=== PATIENT | female | born 1995 | race Caucasian/White ===

== ENCOUNTER 2020-02-05 10:12 | Observation (INO) | payer SELFPAY ==
[~2020-02-05] VITALS: Ht 157.5 cm; Wt 80.3 kg
[2020-02-05] MEDS ORDERED: LACTATED RINGERS 1,000 ML IV SCH (12:45)
[2020-02-05] MEDS: TERBUTALINE SULFATE 1MG/ML VIAL SUBCUT NR ×2 (13:07→14:01)
== END 2020-02-05 15:00 | disposition home or self-care (01) ==
LOC: 8 EST LDRP 10:12
PROVIDERS: ADMIT Obstetrics & Gynecology; ATTEND Obstetrics & Gynecology
DX: O26.893 Other specified pregnancy related conditions, third trimester (principal); R10.9 Unspecified abdominal pain; Z3A.31 31 weeks gestation of pregnancy
CPT/HCPCS: 59025; 76815; 76818; 96360; 96361; 96372; G0378; J3105; 96365; 99281

== ENCOUNTER 2020-03-27 10:50 | Emergency (ER) | payer MEDICAID ==
[~2020-03-27] VITALS: Ht 160 cm; Wt 75.0 kg
[2020-03-27 11:00] VITALS: BP 135/79
== END 2020-03-27 11:46 | disposition home or self-care (01) ==
LOC: ER 10:50 → EDBD 10:50 → ER 11:46
DX: O26.893 Other specified pregnancy related conditions, third trimester (principal); Z3A.32 32 weeks gestation of pregnancy; Z20.828 Contact with and (suspected) exposure to other viral communicable diseases
CPT/HCPCS: 87635; 99283; C9803

== ENCOUNTER 2020-03-29 07:24 | Inpatient (IN) | payer MEDICAID ==
[~2020-03-29] VITALS: Ht 165.1 cm; Wt 84.8 kg
[2020-03-29] MEDS ORDERED: METHYLERGONOVINE MALEATE 0.2 MG/ML IM PRN (09:00)
[2020-03-29] MEDS ORDERED: CARBOPROST TROMETHAMINE 250 MCG/ML AMPUL IM PRN (09:00)
[2020-03-29] MEDS ORDERED: DEXT 5%/LR + PITOCIN 20UNITS/L 1,000 ML IV SCH (09:00)
[2020-03-29] MEDS ORDERED: NALOXONE HCL 0.4 MG/ML 1ML VIAL IM PRN (09:00)
[2020-03-29] MEDS ORDERED: LACTATED RINGERS 1,000 ML IV SCH (09:00)
[2020-03-29] MEDS ORDERED: MISOPROSTOL 100MCG TABLET VG SCH (09:00)
[2020-03-29 09:26] LABS: BASOPHILS % 0.2 % (0.0-2.0); EOSINOPHILS % 0.2 % (0.0-5.0); HEMATOCRIT. 37.7 % (36.0-48.0); HEMOGLOBIN. 13.2 g/dL (12.0-16.0); LYMPHOCYTES % 20.3 % (20.0-50.0); MEAN CORPUSCULAR HEMOGLOBIN 32.9 pg (28.0-32.0); MEAN CORPUSCULAR VOLUME 93.8 fL (81.0-99.0); MEAN PLATELET VOLUME 8.2 fl (7.4-10.4); MONOCYTES % 5.8 % (2.0-8.0); NEUTROPHILS % 73.5 % (40.0-76.0); PLATELET 244 x1000/uL (130-400); RED BLOOD CELL COUNT 4.02 mill/uL (4.2-5.4); RED CELL DISTRIBUTION WIDTH 13.7 % (11.6-14.6)
[2020-03-29 09:29] LABS: CLARITY URINE CLEAR (CLEAR); COLOR URINE YELLOW (YELLOW); KETONES URINE NEGATIVE (NEGATIVE); LEUKOCYTE ESTERASE URINE TRACE (NEGATIVE); NITRITE URINE NEGATIVE (NEGATIVE); OCCULT BLOOD URINE NEGATIVE (NEGATIVE); PROTEIN URINE NEGATIVE (NEGATIVE); SPECIFIC GRAVITY URINE 1.018 (1.005-1.030); UROBILINOGEN URINE 0.2 E.U./dL (0.2-1.0)
[2020-03-29 09:37] LABS: INR 1.7; PARTIAL THROMBOPLASTIN TIME 41.6 sec (23.4-31.0); PROTHROMBIN TIME 17.7 sec (9.6-11.0)
[2020-03-29 09:50] LABS: *AMPHETAMINES SCREEN URINE NEGATIVE (NEGATIVE); *BARBITURATES SCREEN URINE NEGATIVE (NEGATIVE); *BENZODIAZEPINES SCREEN URINE NEGATIVE (NEGATIVE); *COCAINE SCREEN URINE NEGATIVE (NEGATIVE); METHADONE URINE SCREEN NEGATIVE (NEGATIVE)
[2020-03-29 09:51] LABS: CANNABINOID URINE SCREEN NEGATIVE (NEGATIVE); OPIATES URINE SCREEN NEGATIVE (NEGATIVE); PHENCYCLIDINE URINE SCREEN NEGATIVE (NEGATIVE)
[2020-03-29 12:26] LABS: HEPATITIS B SURFACE ANTIGEN NEGATIVE
[2020-03-29 15:44] LABS: PARTIAL THROMBOPLASTIN TIME 27.5 sec (23.4-31.0); PROTHROMBIN TIME 10.3 sec (9.6-11.0)
[2020-03-29] MEDS ORDERED: EPHEDRINE SULFATE 50MG/ML VIAL ONE (16:15)
[2020-03-29] MEDS ORDERED: MORPHINE SULFATE/PF 1MG/ML 10ML AMP ONE (16:15)
[2020-03-29] MEDS ORDERED: SUCCINYLCHOLINE CHLORIDE 200MG/10ML IV ONE (16:15)
[2020-03-29] MEDS ORDERED: CEFAZOLIN SODIUM 1000MG/VIAL ONE (16:15)
[2020-03-29] MEDS ORDERED: OXYTOCIN 10 UNITS/ML 1ML ONE (16:15)
[2020-03-29] MEDS ORDERED: ONDANSETRON HCL 4MG/2ML INJ ONE (16:15)
[2020-03-29] MEDS ORDERED: PHENYLEPHRINE HCL 10 MG/ML 1ML (IV VIAL) IV ONE (16:38)
[2020-03-29] MEDS ORDERED: NALOXONE HCL 0.4 MG/ML 1ML VIAL IV PRN (17:00)
[2020-03-29] MEDS ORDERED: ONDANSETRON HCL 4MG/2ML INJ IV PRN ×2 (17:00→18:30)
[2020-03-29] MEDS ORDERED: DIPHENHYDRAMINE 50MG/ML VIAL IV PRN (17:00)
[2020-03-29] MEDS ORDERED: FENTANYL CITRATE/PF 50MCG/ML 2ML VIAL IV PRN (17:00)
[2020-03-29] MEDS ORDERED: METOCLOPRAMIDE HCL 10MG/2ML VIAL IV PRN (17:00)
[2020-03-29] MEDS ORDERED: MORPHINE SULFATE 10 MG/ML CPJ IV PRN (17:00)
[2020-03-29] MEDS ORDERED: HYDROCODONE/ACETAMINOPHEN 5/325MG TABLET PO PRN (18:30)
[2020-03-29] MEDS ORDERED: BISACODYL 10MG SUPP PR PRN (18:30)
[2020-03-29] MEDS ORDERED: DIPHENHYDRAMINE 25MG CAPSULE PO PRN (18:30)
[2020-03-29] MEDS ORDERED: LANOLIN OINT 7GM TUBE TOP PRN (18:30)
[2020-03-29] MEDS ORDERED: HEMORRHOIDAL SUPP PR PRN (18:30)
[2020-03-29] MEDS ORDERED: IBUPROFEN 400MG TABLET PO PRN (18:30)
[2020-03-29] MEDS: DEXT 5%/LR + PITOCIN 20UNITS/L 1,000 ML IV SCH (18:48)
[2020-03-29] MEDS: KETOROLAC 30MG/ML VIAL IV SCH (19:45)
[2020-03-29] MEDS ORDERED: PENICILLIN G POTASSIUM 5 MMU in DEXT 5% WATER 100 ML IV SCH (20:00)
[2020-03-29 20:15] VITALS: BP 121/64
[2020-03-29 20:45] VITALS: BP 127/64
[2020-03-29] MEDS ORDERED: DOCUSATE SODIUM 100MG CAPSULE PO SCH (21:00)
[2020-03-29 21:15] VITALS: BP 126/72
[2020-03-30] MEDS ORDERED: PENICILLIN G POTASSIUM 2.5 MMU in DEXTROSE 5% WATER 50 ML IV SCH ×2
[2020-03-30 00:10] VITALS: BP 109/57
[2020-03-30] MEDS: DEXT 5%/LR + PITOCIN 20UNITS/L 1,000 ML IV SCH ×2 (00:39→08:53)
[2020-03-30] MEDS: KETOROLAC 30MG/ML VIAL IV SCH (01:32)
[2020-03-30 03:30] VITALS: BP 114/59
[2020-03-30 06:04] LABS: BASOPHILS % 0.1 % (0.0-2.0); EOSINOPHILS % 0.1 % (0.0-5.0); HEMATOCRIT. 31.9 % (36.0-48.0); HEMOGLOBIN. 10.9 g/dL (12.0-16.0); LYMPHOCYTES % 14.1 % (20.0-50.0); MEAN CORPUSCULAR HEMOGLOBIN 32.4 pg (28.0-32.0); MEAN CORPUSCULAR VOLUME 94.8 fL (81.0-99.0); MEAN PLATELET VOLUME 8.1 fl (7.4-10.4); MONOCYTES % 7.2 % (2.0-8.0); NEUTROPHILS % 78.5 % (40.0-76.0); PLATELET 207 x1000/uL (130-400); RED BLOOD CELL COUNT 3.36 mill/uL (4.2-5.4); RED CELL DISTRIBUTION WIDTH 13.7 % (11.6-14.6)
[2020-03-30 08:27] VITALS: BP 104/68
[2020-03-30] MEDS: MAGNESIUM/ALUMINUM HYDROXIDE/SIMETHICONE 30ML UDC PO SCH ×3 (08:54→20:36)
[2020-03-30] MEDS: IBUPROFEN 800MG TABLET PO PRN ×2 (08:54→18:08)
[2020-03-30] MEDS: SIMETHICONE 80MG TABLET CHEW PO SCH ×3 (08:54→20:37)
[2020-03-30] MEDS: PRENATAL VIT/FE FUMARATE/FA TABLET PO SCH (08:54)
[2020-03-30] MEDS: FERROUS SULFATE 325MG TABLET PO SCH ×2 (08:54→13:20)
[2020-03-30 16:30] VITALS: BP 105/57
[2020-03-30 19:30] VITALS: BP 112/69
[2020-03-31 04:00] VITALS: BP 109/54
[2020-03-31] MEDS: FERROUS SULFATE 325MG TABLET PO SCH (07:30)
[2020-03-31 08:00] VITALS: BP 114/66
[2020-03-31] MEDS: PRENATAL VIT/FE FUMARATE/FA TABLET PO SCH (09:00)
[2020-03-31] MEDS: IBUPROFEN 800MG TABLET PO PRN (12:33)
== END 2020-03-31 12:45 | disposition home or self-care (01) | DRG 540 ==
LOC: 8 EST LDRP 07:24 → 8EST 20:00
PROVIDERS: ADMIT Obstetrics & Gynecology; ATTEND Obstetrics & Gynecology
PROC: 10D00Z1 Extraction of Products of Conception, Low, Open Approach (ICD-10-PCS; principal; 2020-03-29)
PROC: 0UB70ZZ Excision of Bilateral Fallopian Tubes, Open Approach (ICD-10-PCS; 2020-03-29)
DX: O82 Encounter for cesarean delivery without indication (principal); Z3A.38 38 weeks gestation of pregnancy; Z37.0 Single live birth; Z30.2 Encounter for sterilization; Z98.890 Other specified postprocedural states
CPT/HCPCS: 36415; 80305; 81003; 85025; 86592; 86703; 86762; 86850; 86900; 86920; 87340; 88302; 88307; J0330; J0690; J1885; J2274; J2370; J2405; J2540; J2590; J3490; J7060; A4315